=== PATIENT | male | born 1980 | race African-American/Black ===

== ENCOUNTER 2024-03-21 19:09 | Inpatient (IN) ==
--- NOTE | 2024-03-21 19:46 | Emergency Department Note ---
Impression & Plan Mood disorder ED Provider Note NAME: TOBIAS BALL AGE: 43 SEX: Male INFORMANT: Patient ED PROVIDER(S): Nirav Arambula MD CHIEF COMPLAINT: Mental health evaluation PLAN: Disposition: Still a patient Outpatient prescription management: none Referral: None MEDICAL DECISION MAKING: Patient was evaluated. He noted thoughts of self-harm. Patient requesting inpatient treatment. Laboratory testing performed. Screening COVID test performed as well. Patient evaluated by ED psychiatric pillowcase sewer. The patient had unremarkable CBC and chemistry panel. Unfortunately his alcohol level is mildly elevated and he will need to be monitored until this clears. Patient was monitored uneventfully for several more hours. Patient is currently undergoing evaluation by the ED psychiatric pillowcase sewer and consideration for inpatient management. Patient's case was signed out to Dr. Ashraf at the change of shift. I refer you to the EMR for further details. Care/management discussed with: none Level of care consideration(s): After review of the information above and other included data, I feel the patient requires escalation of care to admission for psychiatric management and evaluation. Triage Nursing notes: reviewed and agree them. Vital Signs: reviewed and remarkable for no significant abnormalities Additional History obtained from: none Chronic Medical/Social Conditions affecting care: none Prior/ Outside/ External records reviewed: none Differential Diagnosis: Mood disorder, infection, hypoglycemia, electrolyte abnormalities, cardiac sources, intracerebral event, toxicologic, trauma, neurologic, as well as other pathologies. Diagnostics, independently interpreted by me: ECG: none Cardiac Monitoring: none Medical decision rules: none Imaging studies: Deferred HPI: 43 year old Male arrives for evaluation of mental health evaluation. This started this last week and is from stress due to his work. 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 He left his work in [place] and tried to seek transportation to [place] for mental health treatment. Patient has never been inpatient before. He does have thoughts of self-harm. He has been drinking alcohol on a daily basis to help with his stress but states this is only been this week. The patient also notes the following associated symptoms, poor appetite. The patient has taken no medication for relieving factors. Current pain is rated as 0/10. No recent illnesses. Pt denies LOC, headache, fevers, chills, diaphoresis, visual changes, neck pain, chest pain, breathing difficulties, nausea, vomiting, abdominal pain, back pain, melena, hematochezia, urinary symptoms, numbness, weakness, lymphadenopathy, rash, or other complaints. PAST MEDICAL HISTORY: See Below, patient denies PAST SURGICAL HISTORY: See Below, appendectomy SOCIAL HISTORY: See Below, drinks alcohol. Occasional cigarettes. HOME MEDICATIONS: See Below ALLERGIES: See Below VITALS: See Below PHYSICAL EXAMINATION: GENERAL: Awake, alert, well-appearing, in no distress HENT: Normocephalic, atraumatic. Oropharynx unremarkable. EYES: Normal conjunctiva. Sclera non-icteric. NECK: Inspection normal. Non-tender. Supple. No nuchal rigidity. FROM. No masses. RESPIRATORY: Clear to auscultation. No wheezes. No rales. Normal respiratory effort. CARDIAC: Normal rate. Normal rhythm. No murmurs. No rubs. Extremities warm and well perfused. Pulses equal. No JVD. GI: Soft, non-distended. No tenderness to palpation. No rebound or guarding. No masses. RECTAL: Deferred. MUSCULOSKELETAL: Atraumatic. Chest examination reveals no tenderness. The back is symmetrical on inspection without obvious abnormality. There is no CVA tenderness to palpation. No joint edema. LOWER EXTREMITIES: Calves are equal size bilaterally and non-tender. No edema. No discoloration. NEURO: Normal sensorium. No sensory or motor deficits noted. SKIN: No rash or jaundice noted. PSYCH: Anxious mood. Normal affect. Positive SI. No hallucinations or delusion PROCEDURES: none CRITICAL CARE: none OBSERVATION NOTE: none Past Med/Surg History Social History Smoking Status: Current every day smoker Feels Safe at Home: No Results & Data (ED) Vital Signs Vital Signs - 24 hr 03/21/24 19:15 03/21/24 19:15 03/21/24 21:12 Temperature 36.7 C Temperature Source Oral Pulse Rate 89 Pulse Rate [Right Radial] Respiratory Rate 18 18 Respiratory Effort / Characteristics Non-Labored Non-Labored Respiratory Depth Normal Respiratory Pattern Regular Regular Blood Pressure 114/74 Blood Pressure [Right Arm] Blood Pressure Mean 87 Blood Pressure Mean [Right Arm] Pulse Oximetry 98 Oxygen Delivery Method Room Air Room Air Sepsis Recent Fever Within 48 Hours No Sepsis New/Unexplained Change in Mental Status N/A Sepsis Action Taken by Nursing No Action Required 03/21/24 22:00 Temperature Temperature Source Pulse Rate Pulse Rate [Right Radial] 82 Respiratory Rate 18 Respiratory Effort / Characteristics Non-Labored Respiratory Depth Normal Respiratory Pattern Regular Blood Pressure Blood Pressure [Right Arm] 117/70 Blood Pressure Mean Blood Pressure Mean [Right Arm] 85 Pulse Oximetry 98 Oxygen Delivery Method Room Air Sepsis Recent Fever Within 48 Hours Sepsis New/Unexplained Change in Mental Status Sepsis Action Taken by Nursing Laboratory Data 03/21/24 19:46 03/21/24 19:46 Lab Results 03/21/24 03/21/24 03/21/24 Range/Units 19:27 19:46 22:02 WBC 6.41 (4.8-10.8) K/ul RBC 5.12 (4.70-6.10) M/uL Hgb 13.9 L (14.0-18.0) g/dl Hct 42.8 (42.0-52.0) % MCV 83.6 (80.0-100.0) fL MCH 27.1 (25.0-34.0) pg MCHC 32.5 (32.0-36.0) g/dL RDW Std Deviation 45.7 (36.4-46.3) fL RDW Coeff of Aj 15.1 H (11.5-14.5) % Plt Count 308 (130-400) K/uL MPV 9.7 (9.4-12.4) fL Immature Gran % (Auto) 0.2 % Neut % (Auto) 59.2 % Lymph % (Auto) 33.4 % Door % (Auto) 5.1 % Eos % (Auto) 1.6 % Baso % (Auto) 0.5 % Neut # (Auto) 3.80 (1.40-6.50) K/uL Lymph # (Auto) 2.14 (1.20-3.40) K/uL Door # (Auto) 0.33 (0.11-0.59) K/uL Eos # (Auto) 0.10 (0.00-0.50) K/uL Baso # (Auto) 0.03 (0.00-0.20) K/uL Immature Gran # (Auto) 0.01 (0.01-0.20) K/uL Sodium 144 (136-145) mmol/L Potassium 3.8 (3.5-5.1) mmol/L Chloride 108 H (98-107) mmol/L Carbon Dioxide 24 (21-32) mmol/L Anion Gap 12 H (3-11) BUN 28 H (6-23) mg/dl Creatinine 0.98 (0.6-1.4) mg/dl Est Cr Clr Drug Dosing Not Reportable Est GFR ( Amer) 109.8 ml/min Est GFR (Non-Af Amer) 94.7 ml/min BUN/Creatinine Ratio 28.6 H (10-20) Glucose 92 (70-99(Fasting)) mg/dl Calcium 9.4 (8.6-10.3) mg/dl Total Bilirubin 0.2 (0.2-1.0) mg/dl AST 19 (13-39) U/L ALT 21 (7-52) U/L Alkaline Phosphatase 78 (34-104) U/L Total Protein 8.1 (6.0-8.3) gm/dl Albumin 4.6 (3.4-5.0) gm/dl Globulin 3.5 (2.5-4.0) gm/dl Albumin/Globulin Ratio 1.3 (0.9-2) TSH 0.414 (0.300-4.500) uIu/ml Urine Color Yellow Urine Appearance Clear (Clear) Urine pH 5.5 (4.5-7.5) Ur Specific [place] 1.037 H (1.000-1.030) Urine Protein 1+ H (Negative) Urine Glucose (UA) Negative (Negative) Urine Ketones Trace H (Negative) Urine Blood Negative (Negative) Urine Nitrite Negative (Negative) Urine Bilirubin Negative (Negative) Urine Urobilinogen Negative (Negative) Ur Leukocyte Esterase Negative (Negative) Urine WBC (Auto) 0-5 (0-5) /hpf Urine RBC (Auto) 0-2 (0-2) /hpf U Hyaline Cast (Auto) 0-2 (0-2) /lpf U Epithel Cells (Auto) 0-2 (0-2) /hpf Urine Bacteria (Auto) None Seen (None Seen) Salicylates < 3.0 L (3.0-30) mg/dl Urine Opiates Screen Neg (Neg) Ur Methadone, Qual Neg (Neg) Acetaminophen < 3 L (10-30) ug/ml Urine Barbiturates Neg (Neg) Ur Phencyclidine (PCP) Neg (Neg) U Amphetamin/Meth Scrn Neg (Neg) MDMA (Ecstasy) Screen Pos H (Neg) U Benzodiazepines Scrn Neg (Neg) Ur Cocaine Metabolite Pos H (Neg) U Marijuana (THC) Screen Neg (Neg) Ethyl Alcohol mg/dL 248.2 H (<10.0) mg/dl SARS-CoV-2, RNA, NAAT NEGATIVE (NEGATIVE) Discharge Plan Visit Data Chief Complaint: Mental Health Evaluation Stated Complaint: 201 MENTAL HEALTH EVAL. ED Provider: Nirav Arambula Discharge Problem: Mood disorder Forms Stand Alone Forms: [facility], Suicide Prevention Resources Referrals Referrals: PCP,NO [Primary Care Provider] -
[2024-03-21 20:27] LABS: Basophils # (auto) 0.03 K/uL (0.00-0.20); Basophils % (auto) 0.5 %; Eosinophils % (auto) 1.6 %; Hematocrit (blood only) 42.8 % (42.0-52.0); Hemoglobin 13.9 g/dl (14.0-18.0); Immature Granulocytes # (auto) 0.01 K/uL (0.01-0.20); Immature Granulocytes % (auto) 0.2 %; Lymphocytes # (auto) 2.14 K/uL (1.20-3.40); Lymphocytes % (auto) 33.4 %; Mean Corpuscular Hemoglobin 27.1 pg (25.0-34.0); Mean Corpuscular Hgb Conc 32.5 g/dL (32.0-36.0); Mean Corpuscular Volume 83.6 fL (80.0-100.0); Mean Platelet Volume 9.7 fL (9.4-12.4); Monocytes # (auto) 0.33 K/uL (0.11-0.59); Monocytes % (auto) 5.1 %; Neutrophils % (auto) 59.2 %; Platelet Count 308 K/uL (130-400); RDW Coefficient of Variation 15.1 % (11.5-14.5); RDW Standard Deviation 45.7 fL (36.4-46.3); Red Blood Count 5.12 M/uL (4.70-6.10); White Blood Count 6.41 K/ul (4.8-10.8)
[2024-03-21 20:39] LABS: Acetaminophen < 3 ug/ml (10-30); Salicylate < 3.0 mg/dl (3.0-30)
[2024-03-21 20:41] LABS: Alanine Aminotransferase 21 U/L (7-52); Albumin Globulin Ratio 1.3 (0.9-2); Albumin Level 4.6 gm/dl (3.4-5.0); Alkaline Phosphatase 78 U/L (34-104); Anion Gap 12 (3-11); Aspartate Aminotransferase 19 U/L (13-39); BUN Creatinine Ratio 28.6 (10-20); Bilirubin,Total 0.2 mg/dl (0.2-1.0); Blood Urea Nitrogen 28 mg/dl (6-23); Calcium 9.4 mg/dl (8.6-10.3); Carbon Dioxide 24 mmol/L (21-32); Chloride 108 mmol/L (98-107); Est GFR (African American) 109.8 ml/min; Est GFR (Non-African American) 94.7 ml/min; Globulin 3.5 gm/dl (2.5-4.0); Glucose 92 mg/dl (70-99(Fasting)); Potassium 3.8 mmol/L (3.5-5.1); Sodium 144 mmol/L (136-145); Total Protein 8.1 gm/dl (6.0-8.3)
[2024-03-21 20:55] LABS: Thyroid Stimulating Hormone 0.414 uIu/ml (0.300-4.500)
[2024-03-21 22:15] LABS: Appearance Urine Clear (Clear); Bacteria Urine Automated None Seen (None Seen); Bilirubin Urine Negative (Negative); Blood Urine Negative (Negative); Cast Urine Automated 0-2 /lpf (0-2); Color Urine Yellow; Epithelial Cell Urine Auto 0-2 /hpf (0-2); Glucose Urine UA Negative (Negative); Ketones Urine Trace (Negative); Leukocyte Esterase Urine Negative (Negative); Nitrite Urine Negative (Negative); Protein Urine 1+ (Negative); RBC Urine Automated 0-2 /hpf (0-2); Specific Gravity Urine 1.037 (1.000-1.030); Urobilinogen Urine Negative (Negative); WBC Urine Automated 0-5 /hpf (0-5); pH Urine 5.5 (4.5-7.5)
[2024-03-21 23:07] LABS: Amphetamines+Metham, Urine Neg (Neg); Barbiturates, Urine Neg (Neg); Benzodiazepine, Urine Neg (Neg); Cocaine, Urine Pos (Neg); MDMA (Ecstacy), Urine Pos (Neg); Marijuana, Urine Neg (Neg); Methadone, Urine Neg (Neg); Opiate, Urine Neg (Neg); Phencyclidine, Urine Neg (Neg)
[2024-03-22] MEDS: ONDANSETRON 4 MG OD TAB PO STA (02:35)
--- NOTE | 2024-03-22 02:37 | Emergency Department Note ---
ED Visit Note Received this patient in signout from Dr. Arambula. Patient with some thoughts of wanting to harm himself and intoxication upon arrival. See his full note for details. Monitor for sobriety. Does later developed some nausea and vomiting. Some Zofran was ordered for the patient. His vitals are reassuring however and his prior blood work without significant abnormality. Possibly related his alcohol intake earlier. Case management assisting with evaluation. Will monitor for any possible alcohol withdrawal but on reassessment around 2:40 AM, the patient appears nontremulous and more just irritable and agitated during discussion with case management. Does report that he has had thoughts of wanting to harm himself could possibly get a hold of a gun. Significant work stressors reported. Dealt with some of his stress and anxiety at this time given a dose of Ativan. Rested after this. Signed out at the end of my shift to the morning doctor Dr. Rowe pending placement for his SI. .
[2024-03-22] MEDS: LORazepam 1 MG TAB PO STA (02:54)
[2024-03-22] MEDS ORDERED: MAGNESIUM HYDROXIDE SUSP 30 ML UDC PO PRN (09:05)
[2024-03-22] MEDS ORDERED: hydrOXYzine HCl 25 MG TAB PO PRN ×2 (09:05)
[2024-03-22] MEDS ORDERED: ALUMINUM/MAGNESIUM SUSP 30 ML UDC PO PRN (09:05)
[2024-03-22] MEDS ORDERED: SODIUM CHLORIDE 0.65% NA SOLN 45 ML (OCEAN) PRN (09:05)
[2024-03-22] MEDS ORDERED: BISMUTH SUBSALICYLATE LIQD 236 ML PO PRN (09:05)
[2024-03-22] MEDS ORDERED: Ativan PO Alcohol Withdrawal--Active Protocol PO PRN ×2 (09:12→11:48)
[2024-03-22] MEDS ORDERED: Patient's ALLERGY Info needs ENTERED SCH (09:30)
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
[2024-03-22] MEDS ORDERED: LORazepam 1 MG TAB PO PRN ×3 (11:48)
[2024-03-22] MEDS: FOLIC ACID 1 MG TAB PO SCH (13:03)
[2024-03-22] MEDS: THIAMINE HCL 100 MG TAB PO SCH (13:04)
--- NOTE | 2024-03-22 15:31 | Emergency Department Note ---
ED Visit Note Patient signed out to me at change of shift by Dr. Ashraf. Patient medically cleared at time of signout. Patient being evaluated and awaiting final disposition at time of signout. Patient voluntary and in agreement with inpatient mental treatment at this time. Patient accepted by 3 S. for inpatient mental health treatment. 201 signed by me at [id number]. .
[2024-03-22] MEDS ORDERED: GABAPENTIN 600MG ALCOHOL WITHDRAWAL LOAD PO SCH (17:45)
[2024-03-22] MEDS: NICOTINE POLACRILEX 2 MG GUM MT PRN (17:53)
[2024-03-22] MEDS: ACETAMINOPHEN 325 MG TAB PO PRN (18:03)
[2024-03-22] MEDS: GABAPENTIN 600 MG TAB PO ONE (18:11)
[2024-03-22] MEDS: OLANZapine 5 MG TABLET PO SCH (21:58)
[2024-03-23] MEDS: GABAPENTIN 100 MG CAP PO SCH (01:53)
--- NOTE | 2024-03-23 09:07 | Psychiatric Progress Note ---
Date of Service March 23, 2024 Impression / Recommendations Impression 43 yo man with history of depression and paranoia presenting with increased paranoia, SI with plans and significant alcohol use with recent cocaine use in context of work, housing and financial stress as well as physical pain from chronic back and knee issues. Diagnostically consistent with unspecified depressive disorder and unspecified psychosis likely combination of MDD and substance-induced/withdrawal symptoms vs reality-based predatory work environment leading to PTSD. 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 No evidence of psychosis or paranoia today. Prefers to discontinue olanzapine and have lower dose as prn in case of any paranoia re-emergence tonight and will continue to utilize gabapentin to reduce risk of alcohol withdrawal side effects and seizures. Fasting lipid panel and glucose reviewed and normal. He is not interested in starting an SSRI at this time. Overall, I spent a total of 36 minutes on this case including meeting with the patient, reviewing the chart, nursing report, multidisciplinary team meeting, orders, and documentation. (1) Depression with suicidal ideation: (2) Suicidal ideations: (3) Paranoia: (4) Mood disorder: (5) Alcohol use disorder, severe, dependence: (6) Cocaine use: Plan 03/23/2024: -Decrease olanzapine to 2.5mg HS prn -Continue AWSS, thiamine, folic acid and gabapentin seizure withdrawal protocol (600mg qdinner, then 400mg qdinner tomorrow then 200mg qdinner) 03/22/2024: The patient was admitted to the [facility] ([facility] mental health unit) on q15 min checks (behavioral with suicide precautions) for safety. The patient will participate in group, recreational, and milieu therapies and will be offered additional individual and family sessions as clinically appropriate. -AWSS with folic acid and thiamine -Motrin for back and knee pain -olanzapine 5mg HS po -Fasting lipid panel and glucose Inventory Assets Strengths: hard worker, supportive grandmother Needs: housing, safety and stabilization, outpatient providers, medication management, additional coping skills, substance use treatment Suicide Risk Level Suicide Risk Level: Moderate (q15 min suicide checks) (SI with plan and martins bstance use but feels safe in the hospital and more future-oriented) Risk Factors Assessment Male: Yes Do You Have Access To A Gun?: No Health Problems: Yes (physical pain) Mental Health Diagnoses: Yes Substance Use Disorders: Yes Previous Attempt: Yes Family History of Suicide: Yes (mother has attempted) Previous Psychiatric Hospitalization: Yes Protective Factors Assessment Employed: Yes ([employer] (traveling) - no going back) Supportive Family: Yes (grandmother) Interval History Identifying Information TOBIAS BALL is a 43-year-old M who is currently transient for work but is from [facility], has a history of depression and paranoia, and was admitted on 03/22/24 08:54 on a 201 voluntary commitment for SI with plan of stabbing himself. Chief Complaint "It made me really drowsy". Review of Systems Sleep Information Total Hours of Sleep: 6.30 Sleep Comments: Scheduled HS Zyprexa Meal Information Percent Meal Consumed - Lunch: 100 Percent Meal Consumed - Dinner: 100 Subjective Subjective Patient was seen & assessed and interval progress reviewed with treatment team nursing and social work. Attended some groups yesterday evening. Today isolative to his room, reports daytime fatigue from olanzapine last night. Does feel it helped him sleep. Prefers to discontinue this at this time. Frustrated by financial limitations due to his lack of insurance due to job not providing healthcare. Discussed potential options such as remaining in [place] versus returning to [place] where his grandmother lives as he does not plan to return to his job. 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 Has not required any ativan via AWSS. Physical Exam Psychiatric Orientation: alert and oriented x 3 Apperance: appropriately dressed and + disheveled Eye Contact: good eye contact Motor Behavior: steady gait and station Speech: normal rate/rhythm/volume of speech Affect: + irritable affect and + constricted affect Mood: + depressed mood, + anxious mood and + irritable mood Thought Process: + circumstantial thought process Thought Content: reality based without delusions Suicidal Thoughts: + reports suicidal thoughts and + reports suicidal plan (none for here, outside to stab himself or jump from a height) Homicidal Thoughts: denies homicidal thoughts Hallucinations: no auditory hallucinations and no visual hallucinations Insight: + limited insight Judgment: + limited judgement Vital Signs (Past 24 Hours) Last Vital Signs Temp 36.9 C 03/23/24 06:08 Pulse 67 03/23/24 06:09 Resp 16 03/23/24 06:08 BP 108/70 03/23/24 06:09 Pulse Ox 98 03/23/24 06:08 O2 Del Method Room Air 03/23/24 06:08 Results & Data ([facility]) Laboratory Results Laboratory Results - last 24 hr 03/23/24 08:00 Fasting Glucose Pending Triglycerides Pending Cholesterol Pending VLDL Cholesterol, Calc Pending HDL Cholesterol Pending Cholesterol/HDL Ratio Pending Current Inpatient Medications Current Inpatient Medications: Current Inpatient Medications Acetaminophen (Acetaminophen 325 Mg Tab) 650 mg PO Q4H PRN PRN Reason: Headache or Minor Fever Stop: 04/21/24 09:04 Last Admin: 03/22/24 18:03 Dose: 650 mg Al Hydrox/Mg Hydrox/Simethicone (Aluminum/Magnesium Susp 30 Ml Udc) 30 ml PO Q4H PRN PRN Reason: GI Upset Stop: 04/21/24 09:04 Bismuth Subsalicylate (Bismuth Subsalicylate Liqd 236 Ml) 15 ml PO PRN PRN PRN Reason: Loose Stool Stop: 04/21/24 09:04 Folic Acid (Folic Acid 1 Mg Tab) 1 mg PO QAM KENYA Stop: 04/21/24 11:59 Last Admin: 03/23/24 08:44 Dose: 1 mg Gabapentin (Gabapentin 600 Mg Tab) 600 mg PO Q24H KENYA Stop: 03/23/24 18:01 Gabapentin (Gabapentin 400 Mg Cap) 400 mg PO Q24H KENYA Stop: 03/24/24 18:01 Gabapentin (Gabapentin 100 Mg Cap) 200 mg PO Q24H KENYA Stop: 03/25/24 18:01 Hydroxyzine HCl (Hydroxyzine Hcl 25 Mg Tab) 50 mg PO HSZ PRN PRN Reason: Insomnia Stop: 04/21/24 09:04 Hydroxyzine HCl (Hydroxyzine Hcl 25 Mg Tab) 25 mg PO Q4H PRN PRN Reason: Anxiety Stop: 04/21/24 09:04 Ibuprofen (Ibuprofen 600 Mg Tab) 600 mg PO Q8H KENYA Stop: 04/22/24 09:14 Lorazepam (Lorazepam 1 Mg Tab) 1 mg PO UD PRN; Protocol PRN Reason: EtOH Withdrawal AWSS Score 6,7 Stop: 04/21/24 11:47 Lorazepam (Lorazepam 1 Mg Tab) 3 mg PO ONCE PRN; Protocol PRN Reason: EtOH Withdrawal AWSS Score 10 & above Lorazepam (Lorazepam 1 Mg Tab) 2 mg PO UD PRN; Protocol PRN Reason: EtOH Withdrawal AWSS Score 8,9 Stop: 04/21/24 11:47 Magnesium Hydroxide (Magnesium Hydroxide Susp 30 Ml Udc) 30 ml PO DAILY PRN PRN Reason: Constipation Stop: 04/21/24 09:04 Nicotine Polacrilex (Nicotine Polacrilex 2 Mg Gum) 2 piece MT PRN PRN PRN Reason: Nicotine Withdrawal Symptoms Stop: 04/21/24 09:04 Last Admin: 03/22/24 17:53 Dose: 2 piece Olanzapine (Olanzapine 5 Mg Tablet) 5 mg PO HS KENYA Stop: 04/21/24 21:59 Last Admin: 03/22/24 21:58 Dose: 5 mg Sodium Chloride (Sodium Chloride 0.65% Na Soln 45 Ml ([place])) 1 - 2 sprays NA PRN PRN PRN Reason: Nasal Dryness/Congestion Stop: 04/21/24 09:04 Thiamine HCl (Thiamine Hcl 100 Mg Tab) 100 mg PO QAM KENYA Stop: 04/21/24 11:59 Last Admin: 03/23/24 08:44 Dose: 100 mg Mental Health & Subst Abuse Tx Therapist Name of Therapist: None Strainer Cleaner Name of Strainer Cleaner: None
[2024-03-23 09:55] LABS: Chol HDL Ratio 1.9 (0-5)
[2024-03-23] MEDS: IBUPROFEN 600 MG TAB PO SCH (09:59)
[2024-03-23] MEDS ORDERED: OLANZAPINE 2.5 MG TAB PO PRN (12:47)
[2024-03-23] MEDS: GABAPENTIN 600 MG TAB PO SCH (18:00)
--- NOTE | 2024-03-24 09:13 | Psychiatric Progress Note ---
Date of Service March 24, 2024 Impression / Recommendations Impression 43 yo man with history of depression and paranoia presenting with increased paranoia, SI with plans and significant alcohol use with recent cocaine use in context of work, housing and financial stress as well as physical pain from chronic back and knee issues. Diagnostically consistent with unspecified depressive disorder and unspecified psychosis likely combination of MDD and substance-induced/withdrawal symptoms vs reality-based predatory work environment leading to PTSD. MNPR given recent aggression toward co-worker 03/24/2024: Mood improving and no evidence of psychosis or paranoia today. Seems symptoms were likely driven by work environment and/or contribution from cocaine use. He is interested in naltrexone for alcohol use disorder, reviewed risks/benefits/alternatives including GI symptoms, liver dysfunction. Will move gabapentin to HS to help reduce evening sedation. Exploring substance use treatment options and disposition planning. Overall, I spent a total of 28 minutes on this case including meeting with the patient, reviewing the chart, nursing report, multidisciplinary team meeting, orders, and documentation. (1) Depression with suicidal ideation: (2) Suicidal ideations: (3) Mood disorder: (4) Alcohol use disorder, severe, dependence: (5) Cocaine use: Plan 03/24/2024: -Discontinue olanzapine -Start naltrexone 25mg qdinner -gabapentin 400mg HS and then 200mg HS tomorrow and then stop 03/23/2024: -Decrease olanzapine to 2.5mg HS prn -Continue AWSS, thiamine, folic acid and gabapentin seizure withdrawal protocol (600mg qdinner, then 400mg qdinner tomorrow then 200mg qdinner) 03/22/2024: The patient was admitted to the [facility] ([facility] mental health unit) on q15 min checks (behavioral with suicide precautions) for safety. The patient will participate in group, recreational, and milieu therapies and will be offered additional individual and family sessions as clinically appropriate. -AWSS with folic acid and thiamine -Motrin for back and knee pain -olanzapine 5mg HS po -Fasting lipid panel and glucose Inventory Assets Strengths: hard worker, supportive grandmother Needs: housing, safety and stabilization, outpatient providers, medication management, additional coping skills, substance use treatment Suicide Risk Level Suicide Risk Level: Moderate (q15 min suicide checks) (mood improving and feels safe in the hospital and more future-oriented) Risk Factors Assessment Male: Yes Do You Have Access To A Gun?: No Health Problems: Yes (physical pain) Mental Health Diagnoses: Yes Substance Use Disorders: Yes Previous Attempt: Yes Family History of Suicide: Yes (mother has attempted) Previous Psychiatric Hospitalization: Yes Protective Factors Assessment Employed: Yes ([employer] (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, has a history of depression and paranoia, and was admitted on 03/22/24 08:54 on a 201 voluntary commitment for SI with plan of stabbing himself. Chief Complaint "I feel more like me again". Review of Systems Sleep Information Total Hours of Sleep: 6 Sleep Comments: Meal Information Percent Meal Consumed - Breakfast: 100 Percent Meal Consumed - Lunch: 100 Percent Meal Consumed - Dinner: 100 Subjective Subjective Patient was seen & assessed and interval progress reviewed with treatment team nursing and social work. Attended two afternoon groups. No scoring on AWSS. Showered last night and changed his clothes. Slept well overnight. Feels sedated after taking gabapentin but agreeable to continuing this to help reduce risk of seizures during alcohol withdrawal. Feels his mood is improving and paranoia is lessening which he attributes to being away from work stress and his bosses. 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 Physical Exam Psychiatric Orientation: alert and oriented x 3 Apperance: appropriately dressed and appropriately groomed Eye Contact: good eye contact Motor Behavior: steady gait and station Speech: normal rate/rhythm/volume of speech Affect: + constricted affect Mood: + depressed mood and + anxious mood Thought Process: goal directed thought process Thought Content: reality based without delusions Suicidal Thoughts: denies suicidal thoughts Homicidal Thoughts: denies homicidal thoughts Hallucinations: no auditory hallucinations and no visual hallucinations Insight: + limited insight Judgment: + limited judgement Vital Signs (Past 24 Hours) Last Vital Signs Temp 36.4 C L 03/24/24 06:54 Pulse 74 03/24/24 06:54 Resp 16 03/24/24 06:54 BP 116/77 03/24/24 06:54 Pulse Ox 98 03/23/24 19:42 O2 Del Method Room Air 03/23/24 19:42 Results & Data ([facility]) Laboratory Results Laboratory Results - last 24 hr 03/23/24 08:00 Fasting Glucose 99 Triglycerides 132 Cholesterol 190 LDL Cholesterol, Calc 62 VLDL Cholesterol, Calc 26 HDL Cholesterol 102 Cholesterol/HDL Ratio 1.9 Current Inpatient Medications Current Inpatient Medications: Current Inpatient Medications Acetaminophen (Acetaminophen 325 Mg Tab) 650 mg PO Q4H PRN PRN Reason: Headache or Minor Fever Stop: 04/21/24 09:04 Last Admin: 03/22/24 18:03 Dose: 650 mg Al Hydrox/Mg Hydrox/Simethicone (Aluminum/Magnesium Susp 30 Ml Udc) 30 ml PO Q4H PRN PRN Reason: GI Upset Stop: 04/21/24 09:04 Bismuth Subsalicylate (Bismuth Subsalicylate Liqd 236 Ml) 15 ml PO PRN PRN PRN Reason: Loose Stool Stop: 04/21/24 09:04 Folic Acid (Folic Acid 1 Mg Tab) 1 mg PO QAM [facility] TO [facility] Stop: 04/21/24 11:59 Last Admin: 03/24/24 08:48 Dose: 1 mg Gabapentin (Gabapentin 400 Mg Cap) 400 mg PO Q24H [facility]ENDING [facility] TO [facility] Stop: 03/24/24 18:01 Gabapentin (Gabapentin 100 Mg Cap) 200 mg PO Q24H [facility]ENDING [facility] TO [facility] Stop: 03/25/24 18:01 Hydroxyzine HCl (Hydroxyzine Hcl 25 Mg Tab) 50 mg PO HSZ PRN PRN Reason: Insomnia Stop: 04/21/24 09:04 Hydroxyzine HCl (Hydroxyzine Hcl 25 Mg Tab) 25 mg PO Q4H PRN PRN Reason: Anxiety Stop: 04/21/24 09:04 Ibuprofen (Ibuprofen 600 Mg Tab) 600 mg PO Q8H [facility]ENDING [facility] TO [facility] Stop: 04/22/24 09:14 Last Admin: 03/24/24 08:48 Dose: 600 mg Lorazepam (Lorazepam 1 Mg Tab) 1 mg PO UD PRN; Protocol PRN Reason: EtOH Withdrawal AWSS Score 6,7 Stop: 04/21/24 11:47 Lorazepam (Lorazepam 1 Mg Tab) 3 mg PO ONCE PRN; Protocol PRN Reason: EtOH Withdrawal AWSS Score 10 & above Lorazepam (Lorazepam 1 Mg Tab) 2 mg PO UD PRN; Protocol PRN Reason: EtOH Withdrawal AWSS Score 8,9 Stop: 04/21/24 11:47 Magnesium Hydroxide (Magnesium Hydroxide Susp 30 Ml Udc) 30 ml PO DAILY PRN PRN Reason: Constipation Stop: 04/21/24 09:04 Nicotine Polacrilex (Nicotine Polacrilex 2 Mg Gum) 2 piece MT PRN PRN PRN Reason: Nicotine Withdrawal Symptoms Stop: 04/21/24 09:04 Last Admin: 03/22/24 17:53 Dose: 2 piece Olanzapine (Olanzapine 2.5 Mg Tab) 2.5 mg PO HS PRN PRN Reason: paranoia Stop: 04/22/24 21:59 Sodium Chloride (Sodium Chloride 0.65% Na Soln 45 Ml ([place])) 1 - 2 sprays NA PRN PRN PRN Reason: Nasal Dryness/Congestion Stop: 04/21/24 09:04 Thiamine HCl (Thiamine Hcl 100 Mg Tab) 100 mg PO QAM KENYA Stop: 04/21/24 11:59 Last Admin: 03/24/24 08:48 Dose: 100 mg Mental Health & Subst Abuse Tx Psychiatrist Name of Psychiatrist: [facility] ([facility]) Psychiatrist's Psychiatric Appointment Comment: Call BRYANT in [facility] for free mental health services Therapist Name of Therapist: None Sap Director Name of Sap Director: Rudolph
[2024-03-24] MEDS: IBUPROFEN 600 MG TAB PO PRN (15:29)
[2024-03-24] MEDS ORDERED: NALTREXONE HCL 50 MG TAB PO SCH (17:15)
[2024-03-24] MEDS: NALTREXONE HCL 50 MG TAB PO SCH (17:44)
[2024-03-24] MEDS ORDERED: GABAPENTIN 400 MG CAP PO SCH (18:00)
[2024-03-24] MEDS: GABAPENTIN 300 MG CAP PO SCH (21:54)
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
[2024-03-25] MEDS ORDERED: GABAPENTIN 100 MG CAP PO SCH (18:00)
[2024-03-26 13:57] LABS: Cocaine, Urine 3290 ng/mL (<100); MDA negative; MDEA negative; MDMA (Ecstasy) Urine, Confirm negative
== END 2024-03-25 11:08 | disposition home or self-care (01) | DRG 885 ==
LOC: ED 19:09 → 3S 03-22 08:56